=== PATIENT | male | born 1960 | race Caucasian/White ===

== ENCOUNTER → 2016-10-25 | Day surgery (SDC) | payer MEDICARE, MEDICAID ==
[2016-10-17 16:40] VITALS: BP 170/91
[2016-10-17 17:09] LABS: BASOPHIL % 0.3 % (0.0-0.2); EOSINOPHIL # 0.2 10^3/uL (0.0-0.2); EOSINOPHIL % 2.5 % (0.0-5.0); HEMATOCRIT 49.2 % (37.0-53.0); HEMOGLOBIN 16.3 g/dL (13.9-16.3); LYMPHOCYTES # 1.4 10^3/uL (1.0-4.8); LYMPHOCYTES % 16.1 % (24.0-44.0); MEAN CELL HGB 29.4 pg (26-34); MEAN CELL HGB CONCENTRATION 33.1 g/dL (33-37); MEAN CORP VOLUME 88.6 fL (78-100); MEAN PLATELET VOLUME 8.6 fL (7.8-11.0); MONOCYTES # 0.7 10^3/uL (0.3-0.8); MONOCYTES % 7.9 % (5.0-12.0); NEUTROPHIL # 6.4 10^3/uL (1.8-7.7); RED BLOOD CELL 5.55 10^6/uL (4.50-5.90); RED CELL DISTRIBUTION WIDTH 16.5 % (11.5-14.5); WHITE BLOOD CELL 8.8 10^3/uL (4.5-11.0)
[2016-10-17 17:21] LABS: ANION GAP 12.7; CARBON DIOXIDE 26.8 mmol/L (20.0-32); CREATININE SERUM 1.12 mg/dL (0.59-1.40)
[2016-10-17 17:34] LABS: INR 1.1; PARTIAL THROMBOPLASTIN TIME 23.1 SEC (24.67-30.72); PROTHROMBIN PROTIME 11.6 SEC (9.8-11.9)
[~2016-10-25] VITALS: Ht 185.4 cm; Wt 101.2 kg
[2016-10-25] VITALS (11 sets, daily range): BP systolic 146–174; BP diastolic 70–88
[~2016-10-25] MED LIST: ANAS1TAB3 PO; ATOM80CA PO; BREVIBLOC IV ONE; CELE200C PO; DECADRON ONE; DEXL60CA PO; DIAZ5TAB4 PO; DIPRIVAN IV ONE; EPHEDRINE SULFATE ONE; FLAV100T PO; KETAMINE HCL-Non-Preferred ONE; LACTATED RINGERS 1,000 ML IV SCH; LACTATED RINGERS 1,000 ML ONE; LEVAQUIN 100 ML IV ONE; LITH300C PO; METH750T94 PO; MONT10TA6 PO; NORCO 7.5MG PO ONE; NORCO 7.5MG PO PRN; NS 100ML 100 ML IV ONE; SILO4CAP PO; SILO8CAP PO; SODIUM CHLORIDE IR ONE; SUBLIMAZE ONE; SULF1TAB24 PO; TAMS0.4C2 PO; TEST200V3 IM; TORADOL ONE; TRAZ100T15 PO; TRAZ50TA18 PO; TYLENOL PO ONE; TYLENOL PO STA; VALIUM ONE; VALIUM PO STA; XYLOCAINE ONE; ZIPR40CA2 PO; ZIPR60CA2 PO; ZOFRAN ONE
[2016-10-25] MEDS: LACTATED RINGERS 1,000 ML IV SCH ×2 (07:39→10:30)
--- NOTE | 2016-10-25 11:27 | OPH ---
DATE OF SURGERY: 10/25/2016 PREOPERATIVE DIAGNOSIS: Slow urinary stream. FINAL DIAGNOSIS: Mild bladder neck contracture. DESCRIPTION OF PROCEDURE: The patient was brought to the cystoscopy room and was put in supine position on the cystoscopy table. After the patient was given an LMA general anesthesia, the patient was placed in the lithotomy position. The genitalia was then prepped and draped aseptically in the usual manner. First, a 17-Upper Sorbian cystoscope was inserted per urethra under direct vision with the use of a 30-degree angle lens into the urethra and there was a mild prostatic hyperplasia noted, but there was also a mild bladder neck contracture noted. The rest of the bladder was inspected and there was no evidence of tumor, no calculi or laceration seen. After this was done, the instrument was removed after emptying the bladder with fluid and then a urethral dilatation was then performed using a curved sound up to 24-Upper Sorbian. The procedure was then terminated. The patient was awakened, was transferred to the recovery room in stable condition. Chago Zepeda MD DR: ALEJANDRA/caitlin JOB# [id number]
== END ==
LOC: SDC 00:33
PROVIDERS: ATTEND Urology
DX: N32.0 Bladder-neck obstruction (principal); N40.0 Benign prostatic hyperplasia without lower urinary tract symptoms; F41.9 Anxiety disorder, unspecified; E66.3 Overweight; Z68.29 Body mass index [BMI] 29.0-29.9, adult; M19.90 Unspecified osteoarthritis, unspecified site; K21.9 Gastro-esophageal reflux disease without esophagitis; J45.909 Unspecified asthma, uncomplicated
CPT/HCPCS: 36415; 52281; 80051; 82565; 84520; 85025; 85610; 85730; J1100; J1885; J1956; J2405; J3010; J3490; J7030; J7120 ×2; Z7610